=== PATIENT | female | born 1980 | race Caucasian/White ===

== ENCOUNTER → 2018-05-31 | Outpatient (CLI) | payer OTHER ==
[~2018-05-31] MED LIST: HYDACE5 PO; NAPR220 PO; NORT10 PO; RXHYDACE PO; RXTRAM50 PO; TRAM50 PO
== END | disposition home or self-care (01) ==
LOC: LAB 15:47 → LAB SHORT 15:47
DX: Z34.83 Encounter for supervision of other normal pregnancy, third trimester (principal); Z3A.35 35 weeks gestation of pregnancy
CPT/HCPCS: 87081; 87147

== ENCOUNTER 2021-06-16 06:11 | Day surgery (SDC) | payer OTHER ==
[~2021-06-16] VITALS: Ht 162.6 cm; Wt 82.0 kg
[~2021-06-16 06:11] MED LIST changes: +LEVSOD88 PO; +NIFE30ER PO; +Verotin-Gr Cap1 EACH PO
[2021-06-16] MEDS ORDERED: LISI5 (06:44)
--- NOTE | 2021-06-16 08:08 | NUR ---
06/16/21 0807 Lissy Mosqueda ORSC.JAR LOWER PREP ORSC.DDT UPPER PREP
== END 2021-06-16 09:31 | disposition home or self-care (01) ==
LOC: ORSCSDS 06:11
PROVIDERS: Obstetrics & Gynecology
PROC: 0UT04ZZ Resection of Right Ovary, Percutaneous Endoscopic Approach (ICD-10-PCS; principal; 2021-06-16 07:30)
PROC: 0UT54ZZ Resection of Right Fallopian Tube, Percutaneous Endoscopic Approach (ICD-10-PCS; principal; 2021-06-16 07:30)
DX: R10.2 Pelvic and perineal pain (principal); N83.291 Other ovarian cyst, right side; I10 Essential (primary) hypertension; E03.9 Hypothyroidism, unspecified; Z79.899 Other long term (current) drug therapy
CPT/HCPCS: 88305; A9270; J0171; J1100; J1885; J2250; J2405; J2704; J2710; J3010; J7120

== ENCOUNTER 2022-01-26 12:33 | Day surgery (SDC) | payer OTHER ==
[~2022-01-26] VITALS: Ht 162.6 cm; Wt 80.6 kg
[~2022-01-26 12:33] MED LIST changes: +LISI5
--- NOTE | 2022-01-26 14:40 | NUR ---
01/26/22 1440 Pop Stringer ABDOMINAL AREA PREPPED W/ DURAPREP BY JXM RAHUL AREA & THIGHS PREPPED W/ BETADINE SOLUTION BY KNM BUPIVACAINE 0.5% 50 MLS MIXED W/ EPI 0.25 TO MAKE BUPIVACAINE 0.5% 1:200,000 FOR INJECTION AT OPSITE BY DR BERNAL. MULTI DOSE VIAL MIXED & VERIFIED IN OR BY RNS.
--- NOTE | 2022-01-26 16:05 | NUR ---
01/26/22 1605 SONIDO DACOSTA PT STATES PAIN IS AT A 4/10 AND SHE IS COMFORTABLE TO GO HOME. DISCHARGE INSTRUCTIONS GIVEN AND EXPLAINED TO PT AND , BOTH VERBALIZED UNDERSTANDING.
== END 2022-01-26 16:05 | disposition home or self-care (01) ==
LOC: ORSCSDS 12:33
PROVIDERS: Obstetrics & Gynecology
PROC: 0UT64ZZ Resection of Left Fallopian Tube, Percutaneous Endoscopic Approach (ICD-10-PCS; principal; 2022-01-26 14:00)
PROC: 0UB14ZZ Excision of Left Ovary, Percutaneous Endoscopic Approach (ICD-10-PCS; principal; 2022-01-26 14:00)
DX: N83.8 Other noninflammatory disorders of ovary, fallopian tube and broad ligament (principal); N83.12 Corpus luteum cyst of left ovary; K66.0 Peritoneal adhesions (postprocedural) (postinfection); I10 Essential (primary) hypertension; E03.9 Hypothyroidism, unspecified; Z79.899 Other long term (current) drug therapy
CPT/HCPCS: 88305; A9270; J1100; J1170; J1885; J2405; J2550; J2704; J2710; J3010; J7120

== ENCOUNTER 2022-11-07 22:59 | Emergency (ER) | payer OTHER ==
[~2022-11-07] VITALS: Ht 162.6 cm; Wt 79.8 kg
== END 2022-11-08 00:52 | disposition home or self-care (01) ==
LOC: ER 22:59
DX: R51.9 Headache, unspecified (principal); E03.9 Hypothyroidism, unspecified; Z88.5 Allergy status to narcotic agent; Z88.8 Allergy status to other drugs, medicaments and biological substances; Z79.890 Hormone replacement therapy; Z79.899 Other long term (current) drug therapy
CPT/HCPCS: 36415; 96361; 96374; 96375; 99283-25; A9270; J1630; J1885; J7030

== ENCOUNTER → 2022-11-30 | Outpatient (CLI) | payer OTHER | END | disposition home or self-care (01) | LOC: LAB SHORT 16:11 → LAB 16:11 | DX: J02.9 Acute pharyngitis, unspecified (principal) | CPT/HCPCS: 87081; 87147 ==

== ENCOUNTER → 2025-07-08 | Outpatient (CLI) | payer BC ==
[2025-07-09 10:43] LABS: Chlamydia Trachomatis Vaginal NOT DETECTED (NOT DETECT); Neisseria Gonorrhoea Vaginal NOT DETECTED (NOT DETECT)
== END ==
LOC: LAB SHORT 17:19 → LAB 17:19
PROVIDERS: Advanced Practice Midwife
DX: Z11.3 Encounter for screening for infections with a predominantly sexual mode of transmission (principal)
CPT/HCPCS: 87491; 87591